=== PATIENT | male | born 1940 | race Hispanic/Latino ===

== ENCOUNTER 2017-02-03 09:07 | Inpatient (IN) | payer MEDICARE, OTHER ==
[~2017-02-03] VITALS: Ht 182.9 cm; Wt 90.7 kg
[2017-02-03 09:06] VITALS: BP 162/102
[~2017-02-03 09:07] MED LIST: ARTIFICIAL TEAR15 ML BOTH EYES; ASPIRIN EC81 MG ORAL; BRIMONIDINE TART5 ML BOTH EYES; DILANTIN-1125 MG/5 M PO; DILANTIN100 MG ORAL; KEPPRA LIQ100 MG/1 M ORAL; LEVETIRACE100 MG/1 M GT; LEVETIRACETAM250 MG PO; LISINOPRIL20 MG ORAL; LOPRESSOR1 MG/ML IV; METOPROLOL TART25 MG ORAL; MULTI-DAY VITA1 EAC1 ORAL; POTASSIUM CHLO20 ME2 ORAL; PROSCAR5 MG ORAL; TAMSULOSIN HCL0.4 MG ORAL; TYLENOL650 MG/20. ORAL; VITAMIN D250000 UNI1 ORAL; [UNRECOGNIZED DRUG - OTHER]
--- NOTE | 2017-02-03 09:59 | Emergency Room Report ---
History of Present Illness General Chief Complaint: Altered Level of Consciousness Source: Medical Record Present Illness HPI 68-year-old male presents to ED for evaluation. Per EMS patient is more altered and usual today. Patient became altered after eating breakfast as witnessed by nursing staff. Patient does have history of seizures and is poorly compliant with his medication. However there is no witnessed seizure. Patient showing no signs of distress upon arrival appear normal courted fevers or chills. No chest pain or shortness of breath. No other aggravating relieving factors. Denies any other associated symptoms Allergies: Coded Allergies: Codfish (Unverified Allergy, Unknown, 08/09/15) SOYBEAN (Unverified Allergy, Unknown, 08/09/15) Uncoded Allergies: Cow's Milk (Allergy, Intermediate, 08/09/15) COD FISH (Allergy, Unknown, 02/03/17) COW'S MILK (Allergy, Unknown, 02/03/17) IGG4 (Allergy, Unknown, 08/09/15) Patient History Past Medical History: HTN, COPD Past Surgical History: none Pertinent Family History: none Social History: Denies: alcohol use, drug use, smoking Immunizations: UTD Reviewed Nursing Documentation: PMH: Agreed, PSxH: Agreed Nursing Documentation-PMH Past Medical History: No History, Except For Hx Cardiac Problems: Yes Hx Hypertension: Yes Hx COPD: Yes Hx Cancer: No Hx Gastrointestinal Problems: Yes Hx Neurological Problems: Yes - toxic encephalopathy Hx Seizures: Yes Hx Epilepsy: Yes Review of Systems All Other Systems: limited Physical Exam Vital Signs Date Time Temp Pulse Resp B/P Pulse Ox O2 Delivery O2 Flow Rate FiO2 02/03/17 08:55 79 12 162/91 97 Room Air 02/03/17 09:06 98.0 Sp02 EP Interpretation: reviewed, normal General Appearance: non-toxic, lethargic Head: normocephalic, atraumatic Eyes: bilateral eye PERRL, bilateral eye normal inspection ENT: hearing grossly normal, normal pharynx, no angioedema, normal voice Neck: full range of motion, supple/symm/no masses Respiratory: chest non-tender, lungs clear, normal breath sounds, speaking full sentences Cardiovascular #1: regular rate, rhythm, no edema Cardiovascular #2: 2+ carotid (R), 2+ carotid (L), 2+ radial (R), 2+ radial (L) , 2+ dorsalis pedis (R), 2+ dorsalis pedis (L) Gastrointestinal: normal bowel sounds, non tender, soft, non-distended, no guarding, no rebound Rectal: deferred Genitourinary: normal inspection, no CVA tenderness Musculoskeletal: back normal, gait/station normal, normal range of motion, non- tender, calf tenderness Neurologic: other - lethargic Psychiatric: other - lethargic Reflexes: 3+ bicep (R), 3+ bicep (L), 3+ tricep (R), 3+ tricep (L), 3+ knee (R) , 3+ knee (L) Skin: normal color, no rash, warm/dry, well hydrated Lymphatic: no adenopathy Medical Decision Making Diagnostic Impression: Primary Impression: Encephalopathy acute Additional Impressions: Subtherapeutic serum dilantin level UTI (urinary tract infection) Qualified Codes: N39.0 - Urinary tract infection, site not specified Seizure disorder ER Course Hospital Course 76-year-old M presents to ED with AMS. Differential diagnosis includes- breakthrough seizure, alcohol abuse, sepsis, dehydration Clinical course Patient placed on stretcher. Initial history and physical I ordered labs, IV fluids, EKG, CXR Labs-electrolytes okay, no leukocytosis noted, hemoglobin/hematocrit stable. dilantin level low, UA + bacteria EKG - NSR, no acute changes interpreted by me CXR - elevated R hemidiaphragm Given loading dose of Dilantin. Given antibiotics. Case discussed with Dr. Maldonado and he agreed to accept the patient to his service for further care and support. i. I feel this is a highly complex case requiring extensive working including EKG/Rhythm strip, Xray/CT/US, Blood/urine lab work, repeat exams while in ED, and administration of strong opiates/narcotics for pain control, admission to hospital or close patient follow up. Diagnosis - encephaloatphy, subtherpauetic dilantin level, UTI admitted to telemetry in serious condition Labs Test 02/03/17 09:29 White Blood Count 6.4 K/UL (4.8-10.8) Red Blood Count 4.52 M/UL (4.70-6.10) Hemoglobin 14.5 G/DL (14.2-18.0) Hematocrit 43.1 % (42.0-52.0) Mean Corpuscular Volume 95 FL (80-99) Mean Corpuscular Hemoglobin 32.2 PG (27.0-31.0) Mean Corpuscular Hemoglobin Concent 33.7 G/DL (32.0-36.0) Red Cell Distribution Width 12.3 % (11.6-14.8) Platelet Count 93 K/UL (150-450) Mean Platelet Volume 9.2 FL (6.5-10.1) Neutrophils (%) (Auto) % (45.0-75.0) Lymphocytes (%) (Auto) % (20.0-45.0) Monocytes (%) (Auto) % (1.0-10.0) Eosinophils (%) (Auto) % (0.0-3.0) Basophils (%) (Auto) % (0.0-2.0) Differential Total Cells Counted 100 Neutrophils % (Manual) 73 % (45-75) Lymphocytes % (Manual) 21 % (20-45) Monocytes % (Manual) 4 % (1-10) Eosinophils % (Manual) 2 % (0-3) Basophils % (Manual) 0 % (0-2) Band Neutrophils 0 % (0-8) Platelet Estimate Decreased Platelet Morphology Normal Red Blood Cell Morphology Normal Urine Color Yellow Urine Appearance Cloudy Urine pH 6 (4.5-8.0) Urine Specific [place] 1.020 (1.005-1.035) Urine Protein 2+ (NEGATIVE) Urine Glucose (UA) Negative (NEGATIVE) Urine Ketones Negative (NEGATIVE) Urine Occult Blood 2+ (NEGATIVE) Urine Nitrite Negative (NEGATIVE) Urine Bilirubin Negative (NEGATIVE) Urine Urobilinogen Normal MG/DL (0.0-1.0) Urine Leukocyte Esterase 3+ (NEGATIVE) Urine RBC 5-10 /HPF (0 - 0) Urine WBC 60-80 /HPF (0 - 0) Urine Squamous Epithelial Cells Occasional /LPF Urine Bacteria Few /HPF (NONE) Sodium Level 143 mEQ/L (135-145) Potassium Level 3.7 mEQ/L (3.4-4.9) Chloride Level 104 mEQ/L (98-107) Carbon Dioxide Level 32 mEQ/L (20-30) Anion Gap 7 (5-15) Blood Urea Nitrogen 22 mg/dL (7-23) Creatinine 0.8 mg/dL (0.7-1.2) Estimat Glomerular Filtration Rate mL/min (>60) Glucose Level 130 mg/dL (74-106) Lactic Acid Level 1.70 mmol/L (0.66-2.22) Calcium Level 9.0 mg/dL (8.6-10.2) Total Bilirubin 0.9 mg/dL (0.0-1.2) Aspartate Amino Transf (AST/SGOT) 11 U/L (5-40) Alanine Aminotransferase (ALT/SGPT) 5 U/L (3-41) Alkaline Phosphatase 83 U/L (40-129) Total Creatine Kinase 26 U/L (38-174) Creatine Kinase MB 1.9 ng/mL (< 6.7) Creatine Kinase MB Relative Index 7.3 Troponin I < 0.30 ng/mL (<=0.30) Pro-B-Type Natriuretic Peptide 241 pg/mL (0-450) Total Protein 6.7 g/dL (6.6-8.7) Albumin 3.8 g/dL (3.5-5.2) Globulin 2.9 g/dL Albumin/Globulin Ratio 1.3 (1.0-2.7) Phenytoin (Dilantin) Level < 0.8 ug/mL (10-20) EKG Diagnostic Results Rate: normal Rhythm: other - afib ST Segments: no acute changes ASA given to the pt in ED: No Rhythm Strip Diag. Results EP Interpretation: yes Rhythm: no PVC's, no ectopy Chest X-Ray Diagnostic Results Chest X-Ray Diagnostic Results : Chest X-Ray Ordered: Yes # of Views/Limited/Complete: 1 View Indication: Other - ams EP Interpretation: Yes Interpretation: no consolidation, no pneumothorax, other - elevated R hemodiaphragm Impression: Other - elevated R hemidiaphragm Interpreting ER Provider: Electronically signed by Jimenez Haddad MD Last Vital Signs Date Time Temp Pulse Resp B/P Pulse Ox O2 Delivery O2 Flow Rate FiO2 02/03/17 09:06 98.0 71 12 162/102 97 Room Air Status: improved Disposition: ADMITTED INPATIENT Condition: Serious Referrals: BINU MALDONADO (PCP) JIMENEZ HADDAD M.D. Feb 03, 2017 09:59
[2017-02-03 10:02] LABS: MEAN CORPUSCULAR HEMOGLOBIN 32.2 PG (27.0-31.0); MEAN CORPUSCULAR HGB CONC 33.7 G/DL (32.0-36.0); MEAN CORPUSCULAR VOLUME 95 FL (80-99); MEAN PLATELET VOLUME 9.2 FL (6.5-10.1); PLATELET COUNT 93 K/UL (150-450); RED BLOOD COUNT 4.52 M/UL (4.70-6.10); RED CELL DISTRIBUTION WIDTH 12.3 % (11.6-14.8); WHITE BLOOD COUNT 6.4 K/UL (4.8-10.8)
[2017-02-03 10:05] LABS: APPEARANCE,URINE CLOUDY; KETONES,URINE NEGATIVE (NEGATIVE); LEUKOCYTE ESTERASE ,URINE 3+ (NEGATIVE); NITRITE,URINE NEGATIVE (NEGATIVE); PH,URINE 6 (4.5-8.0); PROTEIN,URINE 2+ (NEGATIVE); UROBILINOGEN,URINE NORMAL MG/DL (0.0-1.0)
[2017-02-03 10:13] LABS: BACTERIA,URINE FEW /HPF; SQUAMOUS EPITHELIAL CELL,UR OCCASIONAL /LPF (NONE/OCC); WBC,URINE 60-80 /HPF (0 - 0)
[2017-02-03 10:15] LABS: TROPONIN I < 0.30 ng/mL (<=0.30)
[2017-02-03 10:21] LABS: ALANINE AMINOTRANSFERASE 5 U/L (3-41); ALBUMIN/GLOBULIN RATIO 1.3 (1.0-2.7); ANION GAP 7 (5-15); ASPARTATE AMINO TRANSFERASE 11 U/L (5-40); CARBON DIOXIDE 32 mEQ/L (20-30); CHLORIDE 104 mEQ/L (98-107); CREATININE 0.8 mg/dL (0.7-1.2); HEMOLYSIS 14; POTASSIUM 3.7 mEQ/L (3.4-4.9); SODIUM 143 mEQ/L (135-145); TOTAL PROTEIN 6.7 g/dL (6.6-8.7)
[2017-02-03 10:29] LABS: EOSINOPHILS % (MANUAL) 2 % (0-3); LYMPHOCYTES % (MANUAL) 21 % (20-45); NEUTROPHILS % (MANUAL) 73 % (45-75); TOTAL CELLS COUNTED 100
[2017-02-03 10:30] LABS: BAND NEUTROPHILS % (MANUAL) 0 % (0-8); BASOPHILS % (MANUAL) 0 % (0-2); PLATELET ESTIMATE DECREASED; PLATELET MORPHOLOGY NORMAL
[2017-02-03 10:31] LABS: CKMB 1.9 ng/mL (< 6.7)
[2017-02-03] MEDS ORDERED: cefTRIAXone 1 GM in NS 55 ML IVPB ONE (11:00)
[2017-02-03] MEDS ORDERED: Phenytoin 1,000 MG in NS 275 ML IV ONE (11:00)
[2017-02-03 11:05] VITALS: BP 166/101
[2017-02-03] MEDS ORDERED: Phenytoin 250mg/5ml vial ONE (11:12)
[2017-02-03] MEDS ORDERED: Vitamin D 50,000 units cap ORAL SCH ×2 (11:30→21:00)
[2017-02-03] MEDS ORDERED: Acetaminophen 650mg/20.3ml ORAL PRN (11:30)
--- NOTE | 2017-02-03 11:39 | Diagnostic Imaging Report ---
Indication: Shortness of breath Technique: One view of the chest Comparison: 08/09/2015 Findings: Again demonstrated is marked elevation of the right hemidiaphragm. The hepatic flexure of the colon is mildly distended by gas. There are compressive atelectatic changes at the right lung base. No definite acute infiltrates, effusions, or congestion. There are cholecystectomy clips. No significant interim change. Patient's chin obscures the upper mediastinum Impression: No definite acute process Elevated right hemidiaphragm, also previously demonstrated, resulting in right basilar atelectasis
[2017-02-03 14:00] VITALS: BP 152/99
[2017-02-03 16:00] VITALS: BP 141/80
[2017-02-03] MEDS: D5 1/2NS 1,000 ML IV SCH (16:09)
[2017-02-03] MEDS: Artificial Tears 1.4% Op Soln BOTH EYES SCH ×2 (16:10→18:17)
[2017-02-03] MEDS: Piperacillin/Tazobactam 3.375 GM in D5W 110 ML IVPB SCH ×2 (16:10→21:35)
[2017-02-03] MEDS: Brimonidine 0.2% Opth Sol BOTH EYES SCH (18:02)
[2017-02-03 20:04] VITALS: BP 161/76
[2017-02-03] MEDS: Tamsulosin 0.4mg cap ORAL SCH (21:35)
[2017-02-03] MEDS: Phenytoin 100mg cap ORAL SCH (21:35)
[2017-02-03] MEDS: levETIRAcetam 500mg/5ml Liquid ORAL SCH (21:35)
--- NOTE | 2017-02-03 23:00 | History and Physical Report ---
DATE OF ADMISSION: 02/03/2017 CHIEF COMPLAINT: Seizures, sepsis, urinary tract infection. HISTORY OF PRESENT ILLNESS: The patient is a 76-year-old male. He has a history of seizure disorder, was transferred from a correction facility with complaints of seizures. According to staff, they found the patient confused, altered, and likely postictal. The patient has longstanding history of seizures. He has a long history of noncompliance with seizure medications. On evaluation in emergency room, the patient had evidence of urinary tract infection with dark cloudy urine. He had numerous WBCs. The patient was given IV Keppra and is now admitted. He has been started on broad-spectrum IV antibiotics. He is somewhat lethargic and confused and not at baseline. PAST MEDICAL HISTORY: Significant for: 1. History of hypertension. 2. Hypertensive heart disease. 3. History of diastolic congestive heart failure. 4. History of sleep apnea. 5. History of seizure disorder. PAST SURGICAL HISTORY: None. CURRENT MEDICATIONS: Reconciled and reviewed. ALLERGIES: and soybean. FAMILY HISTORY: Noncontributory. SOCIAL HISTORY: The patient is a prior smoker. No alcohol. No drugs. REVIEW OF SYSTEMS: Unobtainable as the patient is confused. PHYSICAL EXAMINATION: VITAL SIGNS: Temperature 98 degrees, blood pressure 162/102, pulse 71, respirations 12. GENERAL: The patient is a chronically ill-appearing male. He is arousable but confused and does not follow commands. NECK: Supple. Oropharynx is clear. Mucous members are moist. HEART: Regular rate and rhythm. LUNGS: Clear to auscultation bilaterally. ABDOMEN: Soft, nontender, and nondistended. EXTREMITIES: Without clubbing, cyanosis, or edema. LABORATORY DATA: Labs showed a white count of 7. CMP was unremarkable. UA showed 6 to 8 WBCs. ASSESSMENT: This is a elderly male admitted with seizures, sepsis, urinary tract infection, toxic metabolic encephalopathy, diastolic congestive heart failure, sleep apnea. PLAN: IV antibiotic therapy. Followup cultures. Intravenous seizure medications. Continue DVT and stress ulcer prophylaxis. Torsten Pedersen M.D. DR: Sinan JOB#: [id number] CC:
[2017-02-04] VITALS: BP 153/88
[2017-02-04 03:56] VITALS: BP 151/85
[2017-02-04] MEDS: Piperacillin/Tazobactam 3.375 GM in D5W 110 ML IVPB SCH ×3 (06:11→23:00)
[2017-02-04 08:44] VITALS: BP 145/75
--- NOTE | 2017-02-04 08:54 | General Progress Note ---
Assessment/Plan Problem List: (1) Epileptic seizure, generalized ICD Codes: G40.309 - Generalized idiopathic epilepsy and epileptic syndromes, not intractable, without status epilepticus SNOMED: 09346429 (2) Breakthrough seizure ICD Codes: G40.919 - Epilepsy, unspecified, intractable, without status epilepticus SNOMED: 388862001 (3) Altered level of consciousness ICD Codes: R40.4 - Transient alteration of awareness SNOMED: 4819453 (4) UTI (urinary tract infection) ICD Codes: N39.0 - Urinary tract infection, site not specified SNOMED: 78906080 Qualifiers: Qualified Codes: N39.0 - Urinary tract infection, site not specified Status: stable, progressing Assessment/Plan sz rx monitor level bp rx pt/ot follow up cultures iv abx Subjective ROS Limited/Unobtainable: Yes Constitutional: Reports: malaise, weakness HEENT: Reports: no symptoms Cardiovascular: Reports: no symptoms Respiratory: Reports: cough Gastrointestinal/Abdominal: Reports: no symptoms Genitourinary: Reports: no symptoms Neurologic/Psychiatric: Reports: pre-existing deficit, seizure Endocrine: Reports: no symptoms Hematologic/Lymphatic: Reports: no symptoms Allergies: Coded Allergies: Codfish (Unverified Allergy, Unknown, 08/09/15) SOYBEAN (Unverified Allergy, Unknown, 08/09/15) Uncoded Allergies: Cow's Milk (Allergy, Intermediate, 08/09/15) COD FISH (Allergy, Unknown, 02/03/17) COW'S MILK (Allergy, Unknown, 02/03/17) IGG4 (Allergy, Unknown, 08/09/15) All Systems: reviewed and negative except above Subjective no events. no szs. compliant with meds. no fever or chills. on iv abx. Objective Last 24 Hour Vital Signs Date Time Temp Pulse Resp B/P Pulse Ox O2 Delivery O2 Flow Rate FiO2 02/04/17 08:44 97.7 62 18 145/75 97 Nasal Cannula 2.0 02/04/17 04:00 66 02/04/17 03:56 98.2 64 21 151/85 98 Nasal Cannula 2.0 02/04/17 00:00 58 02/04/17 00:00 98.1 58 20 153/88 95 Nasal Cannula 02/03/17 20:04 98.3 54 19 161/76 95 Room Air 02/03/17 20:00 60 02/03/17 16:00 61 02/03/17 16:00 97.8 56 22 141/80 100 Nasal Cannula 2.0 02/03/17 14:10 98.0 59 14 152/99 97 Nasal Cannula 2.0 02/03/17 14:00 98.0 59 14 152/99 97 Nasal Cannula 2.0 02/03/17 11:05 98.0 78 15 166/101 96 Nasal Cannula 2.0 02/03/17 09:06 98.0 71 12 162/102 97 Room Air 02/03/17 08:55 79 12 162/91 97 Room Air Intake and Output 02/03/17 02/04/17 19:00 07:00 Intake Total 1255.0 ml Output Total 100 ml 1750 ml Balance 1155.0 ml -1750 ml Intake IV Total 255.0 ml Other 1000 ml Output Urine Total 100 ml 1750 ml # Bowel Movements 2 3 Laboratory Tests 02/03/17 09:29: White Blood Count 6.4, Red Blood Count 4.52L, Hemoglobin 14.5, Hematocrit 43.1, Mean Corpuscular Volume 95, Mean Corpuscular Hemoglobin 32.2H, Mean Corpuscular Hemoglobin Concent 33.7, Red Cell Distribution Width 12.3, Platelet Count 93L, Mean Platelet Volume 9.2, Neutrophils (%) (Auto) , Lymphocytes (%) (Auto) , Monocytes (%) (Auto) , Eosinophils (%) (Auto) , Basophils (%) (Auto) , Differential Total Cells Counted 100, Neutrophils % (Manual) 73, Lymphocytes % ( Manual) 21, Monocytes % (Manual) 4, Eosinophils % (Manual) 2, Basophils % ( Manual) 0, Band Neutrophils 0, Platelet Estimate DecreasedL, Platelet Morphology Normal, Red Blood Cell Morphology Normal, Urine Color Yellow, Urine Appearance Cloudy, Urine pH 6, Urine Specific [place] 1.020, Urine Protein 2+H, Urine Glucose (UA) Negative, Urine Ketones Negative, Urine Occult Blood 2+H, Urine Nitrite Negative, Urine Bilirubin Negative, Urine Urobilinogen Normal, Urine Leukocyte Esterase 3+H, Urine RBC 5-10H, Urine WBC 60-80H, Urine Squamous Epithelial Cells Occasional, Urine Bacteria Few, Sodium Level 143, Potassium Level 3.7, Chloride Level 104, Carbon Dioxide Level 32H, Anion Gap 7, Blood Urea Nitrogen 22, Creatinine 0.8, Estimat Glomerular Filtration Rate , Glucose Level 130H, Lactic Acid Level 1.70, Calcium Level 9.0, Total Bilirubin 0.9, Aspartate Amino Transf (AST/SGOT) 11, Alanine Aminotransferase (ALT/SGPT) 5, Alkaline Phosphatase 83, Total Creatine Kinase 26L, Creatine Kinase MB 1.9, Creatine Kinase MB Relative Index 7.3, Troponin I < 0.30, Pro-B-Type Natriuretic Peptide 241, Total Protein 6.7, Albumin 3.8, Globulin 2.9, Albumin/ Globulin Ratio 1.3, Phenytoin (Dilantin) Level < 0.8L Height (Feet): 6 Height (Inches): 0.00 Weight (Pounds): 200 General Appearance: WD/WN, alert Neck: supple Cardiovascular: normal rate, regular rhythm Respiratory/Chest: chest wall non-tender, lungs clear, normal breath sounds, no respiratory distress Abdomen: normal bowel sounds, non tender, soft, no organomegaly Edema: no edema noted Arm (L), no edema noted Arm (R), no edema noted Leg (L), no edema noted Leg (R), no edema noted Pedal (L), no edema noted Pedal (R), no edema noted 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
[2017-02-04] MEDS ORDERED: D5 1/2NS 1,000 ML IV SCH (09:00)
[2017-02-04] MEDS ORDERED: Metoprolol 25mg tab ORAL SCH (09:00)
[2017-02-04] MEDS: levETIRAcetam 500mg/5ml Liquid ORAL SCH ×2 (09:19→20:40)
[2017-02-04] MEDS: D5 1/2NS 1,000 ML IV SCH ×2 (09:19→20:55)
[2017-02-04] MEDS: Lisinopril 20mg tab ORAL SCH (09:20)
[2017-02-04] MEDS: Aspirin EC 81mg tab ORAL SCH (09:20)
[2017-02-04] MEDS: Artificial Tears 1.4% Op Soln BOTH EYES SCH ×3 (09:21→17:34)
[2017-02-04] MEDS: Brimonidine 0.2% Opth Sol BOTH EYES SCH ×3 (09:21→17:34)
[2017-02-04] MEDS: Phenytoin 100mg cap ORAL SCH ×2 (10:52→20:40)
[2017-02-04 12:00] VITALS: BP_SYST 112; BP_SYST 115; BP_DIAS 67; BP_DIAS 93
[2017-02-04 16:00] VITALS: BP 108/60
[2017-02-04 20:32] VITALS: BP 127/72
[2017-02-04] MEDS: Tamsulosin 0.4mg cap ORAL SCH (20:40)
[2017-02-04] MEDS ORDERED: D5 1/2NS 1000ml IV ONE (21:03)
[2017-02-04] MEDS ORDERED: Tubing IV Secondary IV ONE (21:03)
[2017-02-05] VITALS (7 sets, daily range): BP systolic 108–157; BP diastolic 50–86
[2017-02-05] MEDS: Piperacillin/Tazobactam 3.375 GM in D5W 110 ML IVPB SCH (05:52)
[2017-02-05] MEDS: D5 1/2NS 1,000 ML IV SCH (07:21)
--- NOTE | 2017-02-05 08:54 | General Progress Note ---
Assessment/Plan Problem List: (1) Epileptic seizure, generalized ICD Codes: G40.309 - Generalized idiopathic epilepsy and epileptic syndromes, not intractable, without status epilepticus SNOMED: 30738141 (2) Breakthrough seizure ICD Codes: G40.919 - Epilepsy, unspecified, intractable, without status epilepticus SNOMED: 505723621 (3) Altered level of consciousness ICD Codes: R40.4 - Transient alteration of awareness SNOMED: 3627415 (4) UTI (urinary tract infection) ICD Codes: N39.0 - Urinary tract infection, site not specified SNOMED: 03571475 Qualifiers: Qualified Codes: N39.0 - Urinary tract infection, site not specified Status: stable, progressing Assessment/Plan sz rx monitor level bp rx pt/ot follow up cultures iv abx adjusted dc ivf Subjective ROS Limited/Unobtainable: No Constitutional: Reports: malaise, weakness HEENT: Reports: no symptoms Cardiovascular: Reports: no symptoms Respiratory: Reports: no symptoms Gastrointestinal/Abdominal: Reports: no symptoms Genitourinary: Reports: no symptoms Neurologic/Psychiatric: Reports: pre-existing deficit, seizure Endocrine: Reports: no symptoms Hematologic/Lymphatic: Reports: no symptoms Allergies: Coded Allergies: Codfish (Unverified Allergy, Unknown, 08/09/15) SOYBEAN (Unverified Allergy, Unknown, 08/09/15) Uncoded Allergies: Cow's Milk (Allergy, Intermediate, 08/09/15) COD FISH (Allergy, Unknown, 02/03/17) COW'S MILK (Allergy, Unknown, 02/03/17) IGG4 (Allergy, Unknown, 08/09/15) All Systems: reviewed and negative except above Subjective no events. no szs. compliant with meds. + fever or chills. on iv abx. Objective Last 24 Hour Vital Signs Date Time Temp Pulse Resp B/P Pulse Ox O2 Delivery O2 Flow Rate FiO2 02/05/17 08:00 101.5 110 18 108/50 99 Nasal Cannula 3.0 02/05/17 04:00 97.5 64 20 145/70 95 Room Air 02/05/17 04:00 64 02/05/17 00:00 70 02/05/17 00:00 97.9 64 20 130/80 95 Room Air 02/04/17 20:32 97.4 59 20 127/72 97 Room Air 02/04/17 20:00 56 02/04/17 16:00 59 02/04/17 16:00 97.0 57 20 108/60 98 Nasal Cannula 2.0 02/04/17 12:00 63 02/04/17 12:00 97.6 61 18 112/67 96 Nasal Cannula 2.0 02/04/17 09:20 145/75 Intake and Output 02/04/17 02/05/17 19:00 07:00 Intake Total 1360.0 ml Output Total 550 ml 1875 ml Balance 810.0 ml -1875 ml Intake Oral 240 ml IV Total 1120.0 ml Output Urine Total 550 ml 1875 ml # Bowel Movements 1 Laboratory Tests 02/04/17 09:54: Phenytoin (Dilantin) Level 3.2L Height (Feet): 6 Height (Inches): 0.00 Weight (Pounds): 200 Objective General Appearance: WD/WN, alert Neck: supple Cardiovascular: normal rate, regular rhythm Respiratory/Chest: chest wall non-tender, lungs clear, normal breath sounds, no respiratory distress Abdomen: normal bowel sounds, non tender, soft, no organomegaly Edema: no edema noted Arm (L), no edema noted Arm (R), no edema noted Leg (L), no edema noted Leg (R), no edema noted Pedal (L), no edema noted Pedal (R), no edema noted 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
[2017-02-05] MEDS: Aspirin EC 81mg tab ORAL SCH (09:36)
[2017-02-05] MEDS: Lisinopril 20mg tab ORAL SCH (09:36)
[2017-02-05] MEDS: Artificial Tears 1.4% Op Soln BOTH EYES SCH ×3 (09:38→18:56)
[2017-02-05] MEDS: Brimonidine 0.2% Opth Sol BOTH EYES SCH ×3 (09:38→18:56)
[2017-02-05] MEDS: levETIRAcetam 500mg/5ml Liquid ORAL SCH ×2 (09:38→21:17)
[2017-02-05] MEDS: Phenytoin 100mg cap ORAL SCH ×2 (09:39→21:17)
[2017-02-05 10:08] LABS: MEAN CORPUSCULAR HEMOGLOBIN 32.2 PG (27.0-31.0); MEAN CORPUSCULAR HGB CONC 33.9 G/DL (32.0-36.0); MEAN CORPUSCULAR VOLUME 95 FL (80-99); MEAN PLATELET VOLUME 9.4 FL (6.5-10.1); PLATELET COUNT 89 K/UL (150-450); RED BLOOD COUNT 4.33 M/UL (4.70-6.10); RED CELL DISTRIBUTION WIDTH 12.4 % (11.6-14.8)
[2017-02-05 10:24] LABS: ALANINE AMINOTRANSFERASE 5 U/L (3-41); ALBUMIN/GLOBULIN RATIO 1.3 (1.0-2.7); ASPARTATE AMINO TRANSFERASE 11 U/L (5-40); CALCIUM 8.5 mg/dL (8.6-10.2); CARBON DIOXIDE 31 mEQ/L (20-30); CREATININE 0.9 mg/dL (0.7-1.2); HEMOLYSIS 24; TOTAL PROTEIN 6.1 g/dL (6.6-8.7)
[2017-02-05] MEDS: Vancomycin 1gm/D5W 275ml IVPB SCH ×4 (10:24→21:18)
[2017-02-05 10:32] LABS: BAND NEUTROPHILS % (MANUAL) 0 % (0-8); BASOPHILS % (MANUAL) 0 % (0-2); EOSINOPHILS % (MANUAL) 1 % (0-3); LYMPHOCYTES % (MANUAL) 28 % (20-45); NEUTROPHILS % (MANUAL) 64 % (45-75); PLATELET ESTIMATE DECREASED; PLATELET MORPHOLOGY NORMAL; TOTAL CELLS COUNTED 100
[2017-02-05 10:38] LABS: ANION GAP 9 (5-15); CHLORIDE 103 mEQ/L (98-107); POTASSIUM 3.6 mEQ/L (3.4-4.9); SODIUM 143 mEQ/L (135-145)
--- NOTE | 2017-02-05 11:45 | Consultation ---
DATE OF CONSULTATION: 02/05/2017 INFECTIOUS DISEASE CONSULT This consult is for coverage of Dr. Patiño. PRIMARY ATTENDING PHYSICIAN: Torsten Pedersen M.D. REASON FOR CONSULT: UTI. HISTORY OF PRESENT ILLNESS: The patient is a 76-year-old male, admitted on 02/03/2017, because of altered mental status. The patient is residing in the nursing facility. He has a history of seizure disorder and noncompliance with medication. Before admission, he was on Dilantin. The patient was found confused, altered mental status, and it was found that the Dilantin level was pretty low. The patient also had pyuria and bacteriuria. PAST MEDICAL HISTORY: Significant for seizure disorder, hypertension, COPD, diastolic CHF, sleep apnea, and prostatic hypertrophy. MEDICATIONS: Vancomycin, aspirin, finasteride, lisinopril, multivitamin, Keppra, phenytoin, Flomax, ergocalciferol, Alphagan eye drops, artificial tears, Tylenol, and Zofran. SOCIAL HISTORY: longterm resident. History of smoking in the past. No history of alcohol or drug abuse. REVIEW OF SYSTEMS: Somehow is Limited. He has fever of 101.5 today. He has no chills. He complains of neck pain. He has no problem passing urine. PHYSICAL EXAMINATION: GENERAL APPEARANCE: No acute distress. He seems to be thin. Awake, alert, and verbal. VITAL SIGNS: Temperature 101.5 degrees this morning, pulse 110, and blood pressure 108/50. HEAD AND NECK: No teeth. [place] conjunctivae. HEART: Tachycardic. Regular. LUNGS: Clear. ABDOMEN: Soft and nontender. EXTREMITIES: No edema. LABORATORY AND DIAGNOSTIC DATA: Chest x-ray, no acute process. WBC 6.4, hemoglobin 14.5, hematocrit 43.1, and platelets 93,000. Sodium 142, potassium 3.7, chloride 104, bicarbonate 82, BUN 22, and creatinine 0.8. Glucose 130. Urine culture grew Staph species. Blood culture x2 are negative. MRSA so far is negative. IMPRESSION: Pyuria and bacteriuria, likely urinary tract infection. The patient has history of benign prostatic hypertrophy. The patient has seizure disorder, altered mental status, chronic obstructive pulmonary disease, diastolic congestive heart failure, and hypertension. RECOMMENDATIONS: We will continue with vancomycin. We will follow up the cultures. At the end of my exam, I thank Dr. Pedersen for involving me in the care of this patient. Pravin Davidson M.D. DR: MARLON JOB#: [id number] CC:
[2017-02-05] MEDS: Tamsulosin 0.4mg cap ORAL SCH (21:17)
[2017-02-06 04:00] VITALS: BP 153/90
[2017-02-06 08:00] VITALS: BP 155/93
--- NOTE | 2017-02-06 08:55 | General Progress Note ---
Assessment/Plan Problem List: (1) Epileptic seizure, generalized ICD Codes: G40.309 - Generalized idiopathic epilepsy and epileptic syndromes, not intractable, without status epilepticus SNOMED: 59562956 (2) Breakthrough seizure ICD Codes: G40.919 - Epilepsy, unspecified, intractable, without status epilepticus SNOMED: 039907005 (3) Altered level of consciousness ICD Codes: R40.4 - Transient alteration of awareness SNOMED: 3172048 (4) UTI (urinary tract infection) ICD Codes: N39.0 - Urinary tract infection, site not specified SNOMED: 37901053 Qualifiers: Qualified Codes: N39.0 - Urinary tract infection, site not specified Status: stable, progressing Assessment/Plan sz rx adjusted- dilantin increased monitor level bp rx pt/ot follow up cultures iv abx adjusted dc ivf ok to med surg bed close to nurses station Subjective ROS Limited/Unobtainable: No Constitutional: Reports: malaise, weakness HEENT: Reports: no symptoms Cardiovascular: Reports: no symptoms Respiratory: Reports: no symptoms Gastrointestinal/Abdominal: Reports: no symptoms Genitourinary: Reports: no symptoms Neurologic/Psychiatric: Reports: pre-existing deficit, seizure Endocrine: Reports: no symptoms Hematologic/Lymphatic: Reports: no symptoms Allergies: Coded Allergies: Codfish (Unverified Allergy, Unknown, 08/09/15) SOYBEAN (Unverified Allergy, Unknown, 08/09/15) Uncoded Allergies: Cow's Milk (Allergy, Intermediate, 08/09/15) COD FISH (Allergy, Unknown, 02/03/17) COW'S MILK (Allergy, Unknown, 02/03/17) IGG4 (Allergy, Unknown, 08/09/15) All Systems: reviewed and negative except above Subjective no events. no szs. compliant with meds. + fever or chills. on iv abx. dilantin subtherapeutic Objective Last 24 Hour Vital Signs Date Time Temp Pulse Resp B/P Pulse Ox O2 Delivery O2 Flow Rate FiO2 02/06/17 08:21 70 02/06/17 04:00 64 02/06/17 04:00 98.2 68 18 153/90 96 Room Air 02/06/17 00:00 68 02/05/17 23:46 98.1 67 18 157/86 96 Room Air 02/05/17 20:00 79 02/05/17 20:00 97.0 69 18 143/84 96 Room Air 02/05/17 16:00 65 02/05/17 16:00 97.4 65 20 138/78 95 Room Air 02/05/17 12:00 60 02/05/17 12:00 96.8 63 21 143/83 95 Room Air 02/05/17 09:36 108/50 Intake and Output 02/05/17 02/06/17 19:00 07:00 Intake Total 755.000 ml Output Total 2600 ml 1250 ml Balance -1845.000 ml -1250 ml Intake Oral 480 ml IV Total 275.000 ml Output Urine Total 2600 ml 1250 ml Laboratory Tests 02/05/17 09:40: White Blood Count 7.0, Red Blood Count 4.33L, Hemoglobin 13.9L, Hematocrit 41.2L , Mean Corpuscular Volume 95, Mean Corpuscular Hemoglobin 32.2H, Mean Corpuscular Hemoglobin Concent 33.9, Red Cell Distribution Width 12.4, Platelet Count 89L, Mean Platelet Volume 9.4, Neutrophils (%) (Auto) , Lymphocytes (%) ( Auto) , Monocytes (%) (Auto) , Eosinophils (%) (Auto) , Basophils (%) (Auto) , Differential Total Cells Counted 100, Neutrophils % (Manual) 64, Lymphocytes % ( Manual) 28, Monocytes % (Manual) 7, Eosinophils % (Manual) 1, Basophils % ( Manual) 0, Band Neutrophils 0, Platelet Estimate DecreasedL, Platelet Morphology Normal, Red Blood Cell Morphology Normal, Sodium Level 143, Potassium Level 3.6, Chloride Level 103, Carbon Dioxide Level 31H, Anion Gap 9, Blood Urea Nitrogen 14, Creatinine 0.9, Estimat Glomerular Filtration Rate , Glucose Level 104, Calcium Level 8.5L, Total Bilirubin 0.9, Aspartate Amino Transf (AST/SGOT) 11, Alanine Aminotransferase (ALT/SGPT) 5, Alkaline Phosphatase 85, Total Protein 6.1L, Albumin 3.5, Globulin 2.6, Albumin/Globulin Ratio 1.3, Phenytoin (Dilantin) Level 4.7L Height (Feet): 6 Height (Inches): 0.00 Weight (Pounds): 200 Objective General Appearance: WD/WN, alert Neck: supple Cardiovascular: normal rate, regular rhythm Respiratory/Chest: chest wall non-tender, lungs clear, normal breath sounds, no respiratory distress Abdomen: normal bowel sounds, non tender, soft, no organomegaly Edema: no edema noted Arm (L), no edema noted Arm (R), no edema noted Leg (L), no edema noted Leg (R), no edema noted Pedal (L), no edema noted Pedal (R), no edema noted Generalized 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
[2017-02-06] MEDS: Artificial Tears 1.4% Op Soln BOTH EYES SCH ×3 (09:04→17:23)
[2017-02-06] MEDS: levETIRAcetam 500mg/5ml Liquid ORAL SCH ×2 (09:07→21:00)
[2017-02-06] MEDS: Brimonidine 0.2% Opth Sol BOTH EYES SCH ×3 (09:07→17:23)
[2017-02-06] MEDS: Aspirin EC 81mg tab ORAL SCH (09:07)
[2017-02-06] MEDS: Vancomycin 1gm/D5W 275ml IVPB SCH ×6 (09:08→23:17)
[2017-02-06] MEDS: Lisinopril 20mg tab ORAL SCH (09:09)
[2017-02-06] MEDS ORDERED: Phenytoin 100mg cap ORAL SCH (09:30)
--- NOTE | 2017-02-06 10:39 | Infectious Diseases Prog Note ---
Assessment/Plan Assessment/Plan antibiotics : vancomycin iv A 1. MRSA UTI 2. thrombocytopenia 3. seizures 4. HTN 5. BPH 6. left arm cellulitis P 1. continue vancomycin 5 more days 2. will follow up cultures Subjective Constitutional: Denies: chills, fever Respiratory: Denies: dry cough, shortness of breath Gastrointestinal/Abdominal: Denies: diarrhea, nausea, vomiting Musculoskeletal: Reports: pain Allergies: Coded Allergies: Codfish (Unverified Allergy, Unknown, 08/09/15) SOYBEAN (Unverified Allergy, Unknown, 08/09/15) Uncoded Allergies: Cow's Milk (Allergy, Intermediate, 08/09/15) COD FISH (Allergy, Unknown, 02/03/17) COW'S MILK (Allergy, Unknown, 02/03/17) IGG4 (Allergy, Unknown, 08/09/15) Objective Vital Signs Last 24 Hour Vital Signs Date Time Temp Pulse Resp B/P Pulse Ox O2 Delivery O2 Flow Rate FiO2 02/06/17 09:09 153/91 02/06/17 08:21 70 02/06/17 08:00 97.2 70 18 155/93 92 Room Air 02/06/17 04:00 64 02/06/17 04:00 98.2 68 18 153/90 96 Room Air 02/06/17 00:00 68 02/05/17 23:46 98.1 67 18 157/86 96 Room Air 02/05/17 20:00 79 02/05/17 20:00 97.0 69 18 143/84 96 Room Air 02/05/17 16:00 65 02/05/17 16:00 97.4 65 20 138/78 95 Room Air 02/05/17 12:00 60 02/05/17 12:00 96.8 63 21 143/83 95 Room Air Height (Feet): 6 Height (Inches): 0.00 Weight (Pounds): 200 Respiratory/Chest: lungs clear Cardiovascular: normal rate, regular rhythm, no gallop/murmur Abdomen: soft, non tender Extremities: no edema - left arm erythema, edema Microbiology Date/Time Source Procedure Growth Status 02/03/17 10:47 Nasal Nares MRSA Culture - Final NO METHICILLIN RESISTANT STAPH AUREUS... Complete 02/04/17 18:19 Stool Clostridium difficile Toxin Assay - Final Complete 8/4/17 10:47 Rectum VRE Culture - Final NO VANCOMYCIN RESISTANT ENTEROCOCCUS ... Complete IVETTE DOUGLASS Feb 06, 2017 10:39
[2017-02-06 12:00] VITALS: BP 127/73
--- NOTE | 2017-02-06 15:38 | Diagnostic Imaging Report ---
Indication: Neck Pain Findings: 3 views of the cervical spine were obtained. Study is suboptimal and limited. There is an anterolisthesis at C3-4. There is moderate narrowing of the disc C4-5, C5-6 and C6-7. The bones are osteopenic. There is no obvious fracture. Impression: Limited evaluation showing no obvious acute injury.
[2017-02-06 16:00] VITALS: BP 153/92
[2017-02-06] MEDS ORDERED: D5 1/2NS 1000ml IV ONE (16:46)
[2017-02-06 20:11] VITALS: BP 130/90
[2017-02-06] MEDS ORDERED: Tamsulosin 0.4mg cap ORAL SCH (21:00)
[2017-02-06] MEDS: Vancomycin 1 GM in D5W 275 ML IVPB SCH (22:00)
[2017-02-06] MEDS: Phenytoin 100mg cap ORAL SCH (23:23)
[2017-02-06 23:28] VITALS: BP 176/86
[2017-02-07 03:43] VITALS: BP 170/101
--- NOTE | 2017-02-07 06:45 | Consultation ---
DATE OF CONSULTATION: 02/06/2017 CARDIOLOGY CONSULTATION REQUESTING PHYSICIAN: Torsten Pedersen M.D. REASON FOR CONSULTATION: Labile hypertension. HISTORY OF PRESENT ILLNESS: This is a 76-year-old male with a seizure disorder, who was admitted to the hospital for breakthrough seizures several days ago. He was confused, altered and due to postictal state and started on additional anti seizure medications with no recurrence. He was also noted to have a urinary tract infection and associated encephalopathy. Since admission, he has had labile blood pressure readings and I have been asked to assist for further cardiovascular care. PAST MEDICAL HISTORY: Hypertension with hypertensive heart disease, chronic diastolic congestive heart failure, sleep apnea, seizure disorder, degenerative disk disease, history of cervical laminectomy, prostatic hypertrophy, vitamin D deficiency, glaucoma, and arteriosclerotic cardiovascular disease. ALLERGIES: Milk and soy martinez. SOCIAL HISTORY: Distant smoker. Distant history of moderate alcohol use presently. Lives in a retirement facility. FAMILY HISTORY: Noncontributory. REVIEW OF SYSTEMS: Not reliably obtained from the patient. Prior records reviewed. Pertinent cardiovascular data notable for absence of flow-limiting coronary artery disease. Echocardiogram with normal ejection fraction, concentric hypertrophy, and mild degenerative valve disease. No history of blood clots in the legs. No history of irregular heartbeats. He has no history of asthma or COPD. PHYSICAL EXAMINATION: VITAL SIGNS: Blood pressure ranging from 127/73 to 176/86, heart rate 53 to 71, respiratory 17 to 20, and no fevers. HEENT: Conjunctivae are pink. Oropharynx clear. NECK: Supple. Kyphosis. LUNGS: Diminished breath sounds. CARDIAC: Regular rhythm and rate. Normal S1 and S2 with a fourth heart sound and point of maximal pulse sustained. ABDOMEN: Soft and nontender. EXTREMITIES: Good pulses. No edema. LABORATORY AND DIAGNOSTIC DATA: EKG with sinus rhythm, left ventricular hypertrophy and nonspecific ST change. Most recent labs from yesterday notable for BUN 14, creatinine 0.9, potassium 3.6, and pro-natriuretic peptide on 02/03/2017 of 241. IMPRESSION: 1. Toxic and metabolic encephalopathy. 2. Urinary tract infection. 3. Seizure disorder with breakthrough seizures and associated postictal state. 4. Hypertensive heart disease with labile hypertension. 5. Chronic diastolic congestive heart failure. Sinus bradycardia of no clinical significance. PLAN: 1. Titrate antiseizure regimen. 2. Avoid beta-blockers. 3. DVT prophylaxis. 4. Metabolic profile including thyroid panel, B12 and folate levels. 5. P.r.n. antihypertensives until metabolic and cerebrovascular parameters have been stabilized. Ciro Ames M.D. DR: DANIA JOB#: [id number] CC:
[2017-02-07 08:15] VITALS: BP 163/86
[2017-02-07] MEDS: levETIRAcetam 500mg/5ml Liquid ORAL SCH (08:29)
[2017-02-07] MEDS: Phenytoin 100mg cap ORAL SCH (08:31)
[2017-02-07] MEDS: Artificial Tears 1.4% Op Soln BOTH EYES SCH ×4 (08:48→12:43)
[2017-02-07] MEDS: Brimonidine 0.2% Opth Sol BOTH EYES SCH ×4 (08:49→12:43)
[2017-02-07] MEDS ORDERED: DILANTIN100 MG ORAL (08:57)
[2017-02-07] MEDS ORDERED: KEPPRA LIQ100 MG/1 M ORAL (08:57)
[2017-02-07] MEDS ORDERED: Lisinopril 20mg tab ORAL SCH (09:00)
[2017-02-07] MEDS ORDERED: Aspirin EC 81mg tab ORAL SCH (09:00)
[2017-02-07 09:35] LABS: MEAN CORPUSCULAR HEMOGLOBIN 31.5 PG (27.0-31.0); MEAN CORPUSCULAR HGB CONC 33.4 G/DL (32.0-36.0); MEAN CORPUSCULAR VOLUME 94 FL (80-99); MEAN PLATELET VOLUME 9.6 FL (6.5-10.1); PLATELET COUNT 96 K/UL (150-450); RED BLOOD COUNT 4.76 M/UL (4.70-6.10); RED CELL DISTRIBUTION WIDTH 12.4 % (11.6-14.8); WHITE BLOOD COUNT 7.7 K/UL (4.8-10.8)
[2017-02-07 10:17] LABS: ALANINE AMINOTRANSFERASE 5 U/L (3-41); ALBUMIN/GLOBULIN RATIO 1.1 (1.0-2.7); ANION GAP 7 (5-15); ASPARTATE AMINO TRANSFERASE 10 U/L (5-40); CALCIUM 8.7 mg/dL (8.6-10.2); CARBON DIOXIDE 30 mEQ/L (20-30); CHLORIDE 104 mEQ/L (98-107); CREATININE 0.8 mg/dL (0.7-1.2); HEMOLYSIS 12; MAGNESIUM 1.7 mg/dL (1.7-2.5); POTASSIUM 3.5 mEQ/L (3.4-4.9); SODIUM 141 mEQ/L (135-145); TOTAL PROTEIN 6.2 g/dL (6.6-8.7)
[2017-02-07 10:22] LABS: THYROID STIMULATING HORMONE 0.686 uIU/mL (0.300-4.500)
[2017-02-07] MEDS: Vancomycin 1 GM in D5W 275 ML IVPB SCH (11:00)
[2017-02-07 11:17] LABS: BASOPHILS % (MANUAL) 1 % (0-2); LYMPHOCYTES % (MANUAL) 19 % (20-45); NEUTROPHILS % (MANUAL) 74 % (45-75); TOTAL CELLS COUNTED 100
[2017-02-07 11:18] LABS: BAND NEUTROPHILS % (MANUAL) 0 % (0-8); EOSINOPHILS % (MANUAL) 0 % (0-3); PLATELET ESTIMATE DECREASED; PLATELET MORPHOLOGY NORMAL
[2017-02-07 12:00] VITALS: BP 135/100
[2017-02-07 16:00] VITALS: BP 155/88
--- NOTE | 2017-02-08 01:00 | Discharge Summary ---
DATE OF ADMISSION: 02/03/2017 DATE OF DISCHARGE: 02/07/2017 ADMISSION DIAGNOSES: 1. Seizures. 2. Urinary tract infection. DISCHARGE DIAGNOSES: 1. Seizures. 2. Urinary tract infection. HOSPITAL COURSE: The patient is a pleasant male with history of seizures disorder, hypertension, diastolic congestive heart failure, sleep apnea, history of noncompliance presented with complaints of seizures and diagnosed with MRSA urinary tract infection and received antibiotic therapy. Neurologic consultation was obtained. The patient's antiseizure medication was adjusted. On discharge, he was doing well. The patient will be [facility]. He will continue on seizure treatment. Compliance has been stressed. Plan of care was discussed with the patient's sister. DISCHARGE MEDICATIONS: Please see discharge medication list for discharge medications. DIET: Cardiac diet. ACTIVITY: Ad-omid. FOLLOWUP: The patient will follow up in one to two days at jail facility. Torsten Pedersen M.D. DR: Keyona JOB#: [id number] CC:
--- NOTE | 2017-02-09 04:15 | Progress Note ---
DATE: 02/07/2017 CARDIOLOGY PROGRESS NOTE Late entry report for 02/07/2017 SUBJECTIVE: The patient is more alert and closer to his baseline level of mentation. No seizures have been noted. OBJECTIVE: VITAL SIGNS: Blood pressure remained labile up to 170/101 earlier this morning. Now 135/100, heart rate 57 to 64, respiratory rate 20, and afebrile. NECK: Supple. LUNGS: With diminished breath sounds. No wheezes or rales. CARDIAC: Regular rhythm and rate. Normal S1 and S2 with a fourth heart sound. ABDOMEN: Soft. EXTREMITIES: Trace edema. IMPRESSION: 1. Breakthrough seizures, now on adjusted therapy. 2. Urinary tract infection with sepsis, recovering. 3. Degenerative disk disease. 4. Hypertensive urgency, improving. 5. Sinus bradycardia, chronic and of no clinical significance. PLAN: Continue current antiseizure regimen. Complete antibiotic course. Advancing antihypertensive regimen with caution. Avoid beta-blockers and other agents such as clonidine with negative chronotropic potential. Avoid tight blood pressure control due to orthostatic risk and fall. Ciro Ames M.D. DR: Kiya JOB#: [id number] CC:
[2017-02-10] MEDS ORDERED: Vitamin D 50,000 units cap ORAL SCH (21:00)
== END 2017-02-07 19:07 | DRG 100 ==
LOC: EDBD 09:07 → EDBEDREQ 09:17 → EMR 09:34 → 2E 09:37 → EDBEDREQ 09:45 → 2E 14:49 → 4E 02-06 20:21
DX: G40.309 Generalized idiopathic epilepsy and epileptic syndromes, not intractable, without status epilepticus (principal); G92 Toxic encephalopathy; D69.6 Thrombocytopenia, unspecified; I11.0 Hypertensive heart disease with heart failure; I50.32 Chronic diastolic (congestive) heart failure; N39.0 Urinary tract infection, site not specified; L03.114 Cellulitis of left upper limb; B95.62 Methicillin resistant Staphylococcus aureus infection as the cause of diseases classified elsewhere; G47.30 Sleep apnea, unspecified; I10 Essential (primary) hypertension; Z91.19 Patient's noncompliance with other medical treatment and regimen; J44.9 Chronic obstructive pulmonary disease, unspecified; N40.0 Benign prostatic hyperplasia without lower urinary tract symptoms; Z87.891 Personal history of nicotine dependence; H40.9 Unspecified glaucoma; I25.10 Atherosclerotic heart disease of native coronary artery without angina pectoris
CPT/HCPCS: 36415; 71010; 72040; 80053; 80185; 80202; 81003; 82550; 82553; 82607; 82746; 83605; 83735; 83880; 84443; 84484; 85007; 85025; 87040; 87081; 87086; 87181; 87324; 93005; J1165

== ENCOUNTER 2017-05-14 18:54 | Inpatient (IN) | payer MEDICARE, OTHER ==
[~2017-05-14] VITALS: Ht 182.9 cm; Wt 88.9 kg
[2017-05-14 19:14] VITALS: BP 132/85
[2017-05-14 19:15] VITALS: BP 125/72
[2017-05-14] MEDS ORDERED: OMEPRAZOLE20 M2 ORAL (19:39)
[2017-05-14] MEDS ORDERED: KEPPRA LIQ100 MG/1 M ORAL (19:39)
[2017-05-14] MEDS ORDERED: HYDRALAZINE HCL25 M1 ORAL (19:39)
[2017-05-14 19:43] LABS: EOSINOPHILS % (AUTO) 2.5 % (0.0-3.0); LYMPHOCYTES % (AUTO) 24.6 % (20.0-45.0); MEAN CORPUSCULAR HGB CONC 32.3 G/DL (32.0-36.0); MEAN CORPUSCULAR VOLUME 99 FL (80-99); MEAN PLATELET VOLUME 6.9 FL (6.5-10.1); MONOCYTES % (AUTO) 9.8 % (1.0-10.0); NEUTROPHILS % (AUTO) 62.1 % (45.0-75.0); PLATELET COUNT 123 K/UL (150-450); RED BLOOD COUNT 4.22 M/UL (4.70-6.10); RED CELL DISTRIBUTION WIDTH 12.7 % (11.6-14.8); WHITE BLOOD COUNT 6.9 K/UL (4.8-10.8)
[2017-05-14 20:02] LABS: PROTHROMBIN TIME 10.7 SEC (9.30-11.50)
[2017-05-14 20:04] LABS: ANION GAP 5 mmol/L (5-15); CALCIUM 8.7 MG/DL (8.5-10.1); CARBON DIOXIDE 32 MMOL/L (21-32); CHLORIDE 107 MMOL/L (98-107); CREATININE 0.8 MG/DL (0.55-1.30); SODIUM 144 MMOL/L (136-145)
[2017-05-14 20:07] LABS: AMMONIA 36 umol/L (11.2-31.7)
[2017-05-14 20:15] LABS: ALANINE AMINOTRANSFERASE 15 U/L (12-78); ALBUMIN/GLOBULIN RATIO 0.9 (1.0-2.7); ASPARTATE AMINO TRANSFERASE 14 U/L (15-37); LIPASE 206 U/L (73-393)
[2017-05-14 20:28] LABS: KETONES,URINE NEGATIVE (NEGATIVE); LEUKOCYTE ESTERASE ,URINE 2+ (NEGATIVE); NITRITE,URINE NEGATIVE (NEGATIVE); PH,URINE 5 (4.5-8.0); PROTEIN,URINE 1+ (NEGATIVE); UROBILINOGEN,URINE NORMAL MG/DL (0.0-1.0)
[2017-05-14 20:36] LABS: APPEARANCE,URINE SLIGHTLY CLOUDY
--- NOTE | 2017-05-14 20:38 | Emergency Room Report ---
History of Present Illness General Chief Complaint: Altered Level of Consciousness Source: Patient, EMS Present Illness HPI The patient presents with altered mentation. He was unresponsive at the custodial facility. With sterile itching the patient workup and was able to converse with paramedics. His Accu-Chek was 141 in the field. According to staff he has had this problem in the past with urinary tract infection. Review of his medical records reveals that he's had hepatic encephalopathy in the past. The patient is alert here and denies any pain. Also denies any headache. Denies vomiting, diarrhea, dysuria, chest pain, shortness of breath, cough, skin rashes. Patient on both Keppra and Dilantin for seizures. Was admitted January with AMS felt related to seizure. D/C 02/07 with these dx: Dilantin was subtherapeutic at that time. Alleged poor compliance with med regimen. 1. Breakthrough seizures, now on adjusted therapy. 2. Urinary tract infection with sepsis, recovering. 3. Degenerative disk disease. 4. Hypertensive urgency, improving. 5. Sinus bradycardia, chronic and of no clinical significance. Allergies: Coded Allergies: Codfish (Unverified Allergy, Unknown, 08/09/15) SOYBEAN (Unverified Allergy, Unknown, 08/09/15) Uncoded Allergies: Cow's Milk (Allergy, Intermediate, 08/09/15) COD FISH (Allergy, Unknown, 02/03/17) COW'S MILK (Allergy, Unknown, 02/03/17) IGG4 (Allergy, Unknown, 08/09/15) Patient History Past Medical History: see triage record, old chart reviewed Social History: Reports: smoking - prior, Denies: alcohol use, drug use Social History Narrative [facility] - Born in [facility] - worked 10 jobs Reviewed Nursing Documentation: PMH: Agreed, PSxH: Agreed Nursing Documentation-PMH Hx Cardiac Problems: Yes - Heart failure Hx Hypertension: Yes - Glaucoma Hx COPD: Yes Hx Cancer: No Hx Gastrointestinal Problems: Yes Hx Neurological Problems: Yes - toxic encephalopathy Hx Seizures: Yes - Encephalopathy Hx Epilepsy: Yes Review of Systems All Other Systems: negative except mentioned in HPI Physical Exam Vital Signs Date Time Temp Pulse Resp B/P (MAP) Pulse Ox O2 Delivery O2 Flow Rate FiO2 05/14/17 18:58 58 16 147/88 98 Room Air 05/14/17 19:14 97.9 Sp02 EP Interpretation: reviewed, normal General Appearance: well appearing, no apparent distress, other - somewhat slow to answer Head: normocephalic Eyes: bilateral eye normal inspection, bilateral eye PERRL ENT: moist mucus membranes Neck: supple Respiratory: lungs clear, normal breath sounds Cardiovascular #1: regular rate, rhythm Cardiovascular #2: 2+ radial (R) Gastrointestinal: normal inspection, normal bowel sounds, non tender, no mass, non-distended Musculoskeletal: back normal, gait/station normal, normal range of motion Neurologic: alert, motor strength/tone normal, DTRs symmetric, sensory intact, speech normal Psychiatric: mood/affect normal Skin: normal inspection, warm/dry Medical Decision Making Diagnostic Impression: Primary Impression: Altered level of consciousness Additional Impressions: Hepatic encephalopathy UTI (urinary tract infection) Qualified Codes: N30.00 - Acute cystitis without hematuria Dilantin toxicity Qualified Codes: T42.0X1A - Poisoning by hydantoin derivatives, accidental ( unintentional), initial encounter ER Course Patient presents with altered LOC which has improved on observation of EMS. 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 Evaluation will be with CT, EKG, chest x-ray and labs including urinalysis. He will be with gentle IV hydration. The patient does have a history of seizures and also of hepatic encephalopathy these are high in the list. Also the last time this happened he had an UTI. EKG reveals sinus bradycardia rate of [address]-T wave changes. Chest x-ray was elevated right hemidiaphragm with colonic dilatation as seen in prior x-rays. Labs are significant for pyuria minimally elevated ammonia. Dilantin level excess. Lactulose, antibiotics given. Patient still sleepy but answers appropriately. Patient admitted tele Dr. Pedersen. Patient signed out to Dr. aHddad as no beds on floor. Laboratory Tests Test 05/14/17 19:15 05/14/17 20:00 White Blood Count 6.9 K/UL (4.8-10.8) Red Blood Count 4.22 M/UL (4.70-6.10) L Hemoglobin 13.5 G/DL (14.2-18.0) L Hematocrit 41.8 % (42.0-52.0) L Mean Corpuscular Volume 99 FL (80-99) Mean Corpuscular Hemoglobin 32.0 PG (27.0-31.0) H Mean Corpuscular Hemoglobin Concent 32.3 G/DL (32.0-36.0) Red Cell Distribution Width 12.7 % (11.6-14.8) Platelet Count 123 K/UL (150-450) L Mean Platelet Volume 6.9 FL (6.5-10.1) Neutrophils (%) (Auto) 62.1 % (45.0-75.0) Lymphocytes (%) (Auto) 24.6 % (20.0-45.0) Monocytes (%) (Auto) 9.8 % (1.0-10.0) Eosinophils (%) (Auto) 2.5 % (0.0-3.0) Basophils (%) (Auto) 1.0 % (0.0-2.0) Prothrombin Time 10.7 SEC (9.30-11.50) Prothrombin Time INR 1.0 (0.9-1.1) PTT 27 SEC (23-33) Sodium Level 144 MMOL/L (136-145) Potassium Level 5.0 MMOL/L (3.5-5.1) Chloride Level 107 MMOL/L (98-107) Carbon Dioxide Level 32 MMOL/L (21-32) Anion Gap 5 mmol/L (5-15) Blood Urea Nitrogen 24 mg/dL (7-18) H Creatinine 0.8 MG/DL (0.55-1.30) Estimate Glomerular Filtration Rate mL/min (>60) Glucose Level 112 MG/DL (74-106) H Lactic Acid Level 1.00 mmol/L (0.66-2.22) Calcium Level 8.7 MG/DL (8.5-10.1) Total Bilirubin 0.3 MG/DL (0.2-1.0) Aspartate Amino Transferase (AST) 14 U/L (15-37) L Alanine Aminotransferase (ALT) 15 U/L (12-78) Alkaline Phosphatase 140 U/L (46-116) H Ammonia 36 umol/L (11.2-31.7) H Total Creatine Kinase 40 U/L (26-308) Troponin I 0.007 ng/mL (0.000-0.056) Pro-B-Type Natriuretic Peptide 352 pg/mL (0-125) H Total Protein 7.0 G/DL (6.4-8.2) Albumin 3.4 G/DL (3.4-5.0) Globulin 3.6 g/dL Albumin/Globulin Ratio 0.9 (1.0-2.7) L Lipase 206 U/L (73-393) Phenytoin (Dilantin) Level 23.5 ug/mL (10-20) H Urine Color Lynsey Urine Appearance Slightly cloudy Urine pH 5 (4.5-8.0) Urine Specific [place] 1.020 (1.005-1.035) Urine Protein 1+ (NEGATIVE) H Urine Glucose (UA) Negative (NEGATIVE) Urine Ketones Negative (NEGATIVE) Urine Occult Blood Negative (NEGATIVE) Urine Nitrite Negative (NEGATIVE) Urine Bilirubin Negative (NEGATIVE) Urine Ictotest Negative Urine Urobilinogen Normal MG/DL (0.0-1.0) Urine Leukocyte Esterase 2+ (NEGATIVE) H Urine RBC 0-2 /HPF (0 - 0) H Urine WBC 15-20 /HPF (0 - 0) H Urine Squamous Epithelial Cells Occasional /LPF Urine Bacteria Moderate /HPF (NONE) H Urine Mucus Few /LPF (NONE/OCC) H Urine Opiates Screen Negative (NEGATIVE) Urine Barbiturates Screen Negative (NEGATIVE) Phencyclidine (PCP) Screen Negative (NEGATIVE) Urine Amphetamines Screen Negative (NEGATIVE) Urine Benzodiazepines Screen Negative (NEGATIVE) Urine Cocaine Screen Negative (NEGATIVE) Urine Marijuana (THC) Screen Negative (NEGATIVE) EKG Diagnostic Results Rate: bradycardiac ST Segments: no acute changes Rhythm Strip Diag. Results EP Interpretation: yes Rhythm: no PVC's, no ectopy, other - Sinus bradycardia Chest X-Ray Diagnostic Results Chest X-Ray Diagnostic Results : Chest X-Ray Ordered: Yes # of Views/Limited/Complete: 1 View Indication: Other Interpretation: no effusion, no pneumothorax, other - Elevated right hemidiaphragm with atelectasis and colonic dilatation Impression: Other Electronically Signed by: Electronically signed by Ciro Thakkar MD CT/MRI/US Diagnostic Results CT/MRI/US Diagnostic Results : Imaging Test Ordered: Head Impression no evidence of acute intracranial abnormality Last Vital Signs Date Time Temp Pulse Resp B/P (MAP) Pulse Ox O2 Delivery O2 Flow Rate FiO2 05/14/17 23:06 97.9 56 20 149/74 98 Room Air Status: improved Disposition: ADMITTED INPATIENT Condition: Serious Referrals: UOMOTO,BINU (PCP) Ciro Thakkar M.D. May 14, 2017 20:38
[2017-05-14 20:51] LABS: BACTERIA,URINE MODERATE /HPF; ICTOTEST NEGATIVE; MUCUS,URINE FEW /LPF (NONE/OCC); RBC,URINE 0-2 /HPF (0 - 0); SQUAMOUS EPITHELIAL CELL,UR OCCASIONAL /LPF (NONE/OCC); WBC,URINE 15-20 /HPF (0 - 0)
[2017-05-14] MEDS ORDERED: Lactulose 20gm/30ml UDC ORAL ONE (21:00)
[2017-05-14 21:05] VITALS: BP 129/70
[2017-05-14] MEDS ORDERED: Acetaminophen 650mg/20.3ml ORAL PRN (21:30)
[2017-05-14 23:06] VITALS: BP 149/74
[2017-05-15] VITALS (7 sets, daily range): BP systolic 132–158; BP diastolic 62–86
[2017-05-15] MEDS ORDERED: Heparin 5000 units/ml inj SUBQ SCH (09:00)
[2017-05-15] MEDS ORDERED: Vitamin D 50,000 units cap ORAL SCH (09:00)
[2017-05-15] MEDS: Brimonidine 0.2% Opth Sol BOTH EYES SCH ×3 (09:00→17:39)
[2017-05-15] MEDS: Aspirin EC 81mg tab ORAL SCH (09:18)
[2017-05-15] MEDS: Lisinopril 20mg tab ORAL SCH (09:19)
[2017-05-15] MEDS: Artificial Tears 1.4% Op Soln BOTH EYES SCH ×3 (09:19→17:39)
[2017-05-15] MEDS: Cefepime HCl 1 GM in D5W 55 ML IVPB SCH ×2 (09:28→21:21)
--- NOTE | 2017-05-15 11:30 | Diagnostic Imaging Report ---
Indication: Altered level of consciousness Technique: spiral acquisitions obtained through the brain. Angled axial and coronal 5 x 5 mm slices were reconstructed. No IV contrast utilized. Radiation dose was minimized using automated exposure control Total dose length product 1386 mGycm. CTDIvol(s) 70 mGy Comparison: none FINDINGS: No acute hemorrhage or edema. No mass effect or midline shift. There is age-related enlargement of the ventricles and extra axial CSF spaces. There is periventricular deep white matter ischemic change. Normal charles-white differentiation. Visualized orbits are unremarkable. Visualized sinuses are unremarkable. Again demonstrated is sclerosis of the mastoids on the right. Intact calvarium. No significant interim change IMPRESSION: Chronic and age-related changes. Negative for acute intracranial bleed or mass effect This agrees with the preliminary interpretation provided overnight by [facility] teleradiology service. The CT scanner at [facility] is accredited by the [employer] and the scans are performed using protocols designed to limit radiation exposure to as low as reasonably achievable to attain images of sufficient resolution adequate for diagnostic evaluation
--- NOTE | 2017-05-15 11:32 | Diagnostic Imaging Report ---
Indication: Chest pain Technique: One view of the chest Comparison: 02/03/2017 Findings: Lungs and pleural spaces are clear. Heart size is normal. The aorta is tortuous and calcified. Again demonstrated is marked elevation of the right hemidiaphragm, under which lies distended hepatic flexure of the colon Impression: No acute process This agrees with the preliminary interpretation provided by the emergency room physician
--- NOTE | 2017-05-15 15:32 | History and Physical Report ---
DATE OF ADMISSION: 05/14/2017 CHIEF COMPLAINT: Altered mental status. HISTORY OF PRESENT ILLNESS: The patient is a 76-year-old male. He has a history of hypertension, diastolic congestive heart failure, sleep apnea, and seizure disorder. He presented from a long term facility with complaints of altered mental status. The patient is a poor historian. According to the staff, the patient was confused and lethargic. By the time paramedics arrived, he was more alert. He was transferred to the emergency room. On evaluation there, he remained somewhat confused. He was diagnosed with UTI. In light of his persistent altered mentation, he is now admitted for further evaluation and care. PAST MEDICAL HISTORY: As above. PAST SURGICAL HISTORY: None. CURRENT MEDICATIONS: Reconciled and reviewed. ALLERGIES: Cod fish and milk. FAMILY HISTORY: Noncontributory. SOCIAL HISTORY: There is no known history of tobacco, ethanol, or drugs. REVIEW OF SYSTEMS: GENERAL: No fever or chills. HEENT: No headaches or visual changes. CARDIOPULMONARY: No chest pain or shortness of breath. GASTROINTESTINAL: No nausea or vomiting. GENITOURINARY: No urgency or frequency. MUSCULOSKELETAL: No joint pain or swelling. NEUROLOGIC: Positive history of seizures. PHYSICAL EXAMINATION: VITAL SIGNS: Temperature 97.9, pulse 62, respirations 12, and blood pressure 144/64. GENERAL: The patient is a well-developed male, in no apparent distress. He is arousable, but somewhat lethargic. NECK: Supple. There is no jugular venous distention. HEART: Regular rate and rhythm. LUNGS: Clear. ABDOMEN: Soft, nontender, and nondistended. EXTREMITIES: Without clubbing, cyanosis, or edema. The patient does move all four extremities. Motor strength is 5/5. LABORATORY DATA: Sodium 144, potassium is 5, and creatinine was 0.8. Alkaline phosphatase is 140. Ammonia level is 36. CK of 0.007. Natriuretic peptide 352. UA showed 15 to 20 WBCs. ASSESSMENT: This is a pleasant male admitted with altered mentation secondary to urinary tract infection and possible sepsis. 1. Sepsis. 2. Urinary tract infection. 3. Toxic metabolic encephalopathy. 4. Seizure disorder. 5. History of diastolic congestive heart failure. 6. History of sleep apnea. PLAN: 1. Continue seizure treatment. 2. IV antibiotics. 3. Followup cultures 4. Monitor neuro status. 5. 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 Torsten Pedersen M.D. DR: MANJEET JOB#: [id number] CC:
[2017-05-15] MEDS: Phenytoin 100mg cap ORAL SCH (17:52)
[2017-05-15] MEDS: Tamsulosin 0.4mg cap ORAL SCH (21:21)
[2017-05-15] MEDS: Heparin 5000 units/ml inj SUBQ SCH (21:21)
--- NOTE | 2017-05-15 21:50 | Consultation ---
History of Present Illness General Chief Complaint: Altered Level of Consciousness Present Illness HPI 76 yo male with history of hypertension, diastolic congestive heart failure, sleep apnea, and seizure disorder. He presented from a group home facility with complaints of altered mental status. During the eval the pt pw waxing and waning of consciousness, he initially was confused however as the eval progressed the pt stated was able to answer the questions. per staff, the pt was irritable and agitated earlier and was uncooperative. the pt is Sudanese speaking, understands Thai. the pt has memory impairment Allergies: Coded Allergies: Codfish (Unverified Allergy, Unknown, 08/09/15) SOYBEAN (Unverified Allergy, Unknown, 08/09/15) Uncoded Allergies: Cow's Milk (Allergy, Intermediate, 08/09/15) COD FISH (Allergy, Unknown, 02/03/17) COW'S MILK (Allergy, Unknown, 02/03/17) IGG4 (Allergy, Unknown, 08/09/15) Medication History Scheduled Aspirin Ec* (Aspirin Ec*), 81 MG ORAL DAILY, (Reported) Brimonidine Tartrate* (Alphagan*), 1 DROP BOTH EYES TID, (Reported) Dextran 70/Hypromellose (Artificial Tears Eye Drops*), 1 DROP BOTH EYES TID, ( Reported) Ergocalciferol (Vitamin D2)* (Vitamin D*), 50,000 UNIT ORAL ONCE A WEEK, ( Reported) Finasteride* (Proscar*), 5 MG ORAL DAILY, (Reported) Levetiracetam (Keppra), 1,500 MG ORAL Q12HR Levetiracetam (Keppra), 1,500 MG ORAL Q12HR Levetiracetam (Keppra), 7.5 ML ORAL BID, (Reported) Lisinopril (Lisinopril*), 20 MG ORAL DAILY, (Reported) Metoprolol Tartrate* (Metoprolol Tartrate*), 20 MG ORAL DAILY, (Reported) Multivitamin (Multi-Day Vitamins), 1 TAB ORAL DAILY, (Reported) Omeprazole (Omeprazole), 20 MG ORAL DAILY, (Reported) Phenytoin Sodium Extended* (Dilantin*), 200 MG ORAL BID Phenytoin Sodium Extended* (Dilantin*), 300 MG ORAL Q12HR Potassium Chloride (Potassium Chloride), 20 MEQ ORAL DAILY, (Reported) Tamsulosin Hcl (Tamsulosin Hcl*), 0.4 MG ORAL BEDTIME, (Reported) Scheduled PRN Acetaminophen (Acetaminophen), 650 MG ORAL Q6H PRN for Mild Pain (Pain Scale 1-3 ), (Reported) Hydralazine Hcl* (Hydralazine Hcl*), 25 MG ORAL PRN PRN for For High Blood Pressure, (Reported) Patient History History Provided By: Patient, Medical Record, PMD Healthcare decision maker Resuscitation status Full Code Advanced Directive on File Past Medical/Surgical History Past Medical/Surgical History: (1) Seizure disorder (2) Encephalopathy acute (3) Epileptic seizure, generalized (4) Breakthrough seizure (5) Hepatic encephalopathy (6) UTI (urinary tract infection) (7) Dilantin toxicity (8) Altered level of consciousness (9) Hearing loss (10) Excessive cerumen in right ear canal Review of Systems Psychiatric: Reports: prior hx, anxiety, emotional problems Physical Exam General Appearance: no apparent distress, alert, agitated Neurologic: alert, oriented x 3, responsive, depressed affect Last 24 Hour Vital Signs Date Time Temp Pulse Resp B/P (MAP) Pulse Ox O2 Delivery O2 Flow Rate FiO2 05/15/17 20:00 97.7 60 20 149/86 95 Room Air 05/15/17 16:00 67 05/15/17 16:00 97.2 62 18 136/62 95 Room Air 05/15/17 12:00 72 05/15/17 12:00 98.2 60 16 132/75 98 Room Air 05/15/17 09:19 146/86 05/15/17 07:11 97.9 60 12 144/64 98 Room Air 05/15/17 06:55 97.9 60 12 144/64 98 Room Air 05/15/17 04:42 97.6 55 20 158/68 98 Room Air 05/15/17 03:00 97.9 56 20 142/64 98 Room Air 05/15/17 00:51 97.9 60 20 143/64 98 Room Air 05/14/17 23:06 97.9 56 20 149/74 98 Room Air Intake and Output 05/15/17 05/16/17 19:00 07:00 # Voids 100 # Bowel Movements 1 Height (Feet): 6 Height (Inches): 0.00 Weight (Pounds): 196 Medications Current Medications Medications (Trade) Dose Ordered Sig/Zulema Route PRN Reason Start Time Stop Time Status Last Admin Dose Admin Acetaminophen (Tylenol) 650 mg Q6H PRN ORAL Mild Pain (Pain Scale 1-3) 05/14/17 21:30 12 21:29 Artificial Tears (Akwa-Tears) 1 drop TID BOTH EYES 05/15/17 09:00 06/14/17 08:59 05/15/17 17:39 Aspirin (Ecotrin) 81 mg DAILY ORAL 05/15/17 09:00 06/14/17 08:59 05/15/17 09:18 Brimonidine Tartrate (Alphagan) 1 drop TID BOTH EYES 05/15/17 09:00 06/14/17 08:59 05/15/17 17:39 Cefepime HCl 1 gm/ Dextrose 55 ml @ 110 mls/hr EVERY 12 HOURS IVPB 05/15/17 09:00 05/22/17 08:59 05/15/17 21:21 Ergocalciferol (Drisdol) 50,000 intlu ONCE A WEEK ORAL 05/15/17 09:00 06/14/17 08:59 05/15/17 09:19 Finasteride (Proscar) 5 mg DAILY ORAL 05/15/17 09:00 06/14/17 08:59 05/15/17 09:19 Heparin Sodium (Porcine) (Heparin 5000 units/ml) 5,000 units EVERY 12 HOURS SUBQ 05/15/17 21:00 06/14/17 20:59 05/15/17 21:21 Levetiracetam (Keppra) 1,500 mg Q12HR ORAL 05/15/17 21:00 06/14/17 20:59 05/15/17 21:22 Lisinopril (Prinivil) 20 mg DAILY ORAL 05/15/17 09:00 06/14/17 08:59 05/15/17 09:19 Multivitamins (Multivitamins) 1 tab DAILY ORAL 05/15/17 09:00 06/14/17 08:59 05/15/17 09:18 Phenytoin (Dilantin) 200 mg BID ORAL 05/15/17 18:00 06/14/17 17:59 Tamsulosin HCl (Flomax) 0.4 mg BEDTIME ORAL 05/15/17 21:00 06/14/17 20:59 05/15/17 21:21 Assessment/Plan Status: stable, progressing Assessment/Plan encephalopathy zyprexa 5mg qhs Loren Acevedo M.D. May 15, 2017 21:49
[2017-05-16] VITALS: BP 149/77
[2017-05-16 04:00] VITALS: BP 160/96
[2017-05-16 08:20] VITALS: BP 164/94
[2017-05-16] MEDS: Phenytoin 100mg cap ORAL SCH (08:56)
[2017-05-16] MEDS: Lisinopril 20mg tab ORAL SCH (08:56)
[2017-05-16] MEDS: Brimonidine 0.2% Opth Sol BOTH EYES SCH ×3 (08:57→17:32)
[2017-05-16] MEDS: Artificial Tears 1.4% Op Soln BOTH EYES SCH ×3 (08:57→17:32)
[2017-05-16] MEDS: Aspirin EC 81mg tab ORAL SCH (08:58)
--- NOTE | 2017-05-16 09:04 | General Progress Note ---
Assessment/Plan Problem List: (1) Dilantin toxicity ICD Codes: T42.0X1A - Poisoning by hydantoin derivatives, accidental ( unintentional), initial encounter SNOMED: 80072609 Qualifiers: Qualified Codes: T42.0X1A - Poisoning by hydantoin derivatives, accidental ( unintentional), initial encounter (2) UTI (urinary tract infection) ICD Codes: N39.0 - Urinary tract infection, site not specified SNOMED: 16188366 Qualifiers: Qualified Codes: N30.00 - Acute cystitis without hematuria (3) Seizure disorder ICD Codes: G40.909 - Epilepsy, unspecified, not intractable, without status epilepticus SNOMED: 888226951 (4) Encephalopathy acute ICD Codes: G93.40 - Encephalopathy, unspecified SNOMED: 2649741 (5) Epileptic seizure, generalized ICD Codes: G40.309 - Generalized idiopathic epilepsy and epileptic syndromes, not intractable, without status epilepticus SNOMED: 68304764 (6) Altered level of consciousness ICD Codes: R40.4 - Transient alteration of awareness SNOMED: 2266127 (7) Breakthrough seizure ICD Codes: G40.919 - Epilepsy, unspecified, intractable, without status epilepticus SNOMED: 787664981 Status: stable Assessment/Plan iv abx follow up cultures resume dilantin monitor levels psych eval cards rx Subjective ROS Limited/Unobtainable: No Constitutional: Reports: malaise, weakness HEENT: Reports: no symptoms Cardiovascular: Reports: no symptoms Respiratory: Reports: no symptoms Gastrointestinal/Abdominal: Reports: no symptoms Genitourinary: Reports: no symptoms Neurologic/Psychiatric: Reports: pre-existing deficit, seizure Endocrine: Reports: no symptoms Hematologic/Lymphatic: Reports: no symptoms Allergies: Coded Allergies: Codfish (Unverified Allergy, Unknown, 08/09/15) SOYBEAN (Unverified Allergy, Unknown, 08/09/15) Uncoded Allergies: Cow's Milk (Allergy, Intermediate, 08/09/15) COD FISH (Allergy, Unknown, 02/03/17) COW'S MILK (Allergy, Unknown, 02/03/17) IGG4 (Allergy, Unknown, 08/09/15) All Systems: reviewed and negative except above Subjective ate breakfast. sleepy now. sz meds held yesterday due to high dilantin. better today. family requested psych eval. Objective Last 24 Hour Vital Signs Date Time Temp Pulse Resp B/P (MAP) Pulse Ox O2 Delivery O2 Flow Rate FiO2 05/16/17 08:56 149/77 05/16/17 04:00 60 05/16/17 00:00 60 05/16/17 00:00 97.0 66 20 149/77 96 Room Air 05/15/17 20:00 97.7 60 20 149/86 95 Room Air 05/15/17 20:00 63 05/15/17 16:00 67 05/15/17 16:00 97.2 62 18 136/62 95 Room Air 05/15/17 12:00 72 05/15/17 12:00 98.2 60 16 132/75 98 Room Air 05/15/17 09:19 146/86 Laboratory Tests 05/16/17 07:05: Phenytoin (Dilantin) Level 16.8 Height (Feet): 6 Height (Inches): 0.00 Weight (Pounds): 196 General Appearance: WD/WN, lethargic, confused Neck: supple Cardiovascular: normal peripheral pulses, normal rate, regular rhythm Respiratory/Chest: chest wall non-tender, lungs clear, normal breath sounds, no respiratory distress Abdomen: normal bowel sounds, non tender, soft, no organomegaly Edema: no edema noted Arm (L), no edema noted Arm (R), no edema noted Leg (L), no edema noted Leg (R), no edema noted Pedal (L), no edema noted Pedal (R), no edema noted 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
[2017-05-16] MEDS: Heparin 5000 units/ml inj SUBQ SCH ×2 (09:08→20:47)
[2017-05-16] MEDS: Cefepime HCl 1 GM in D5W 55 ML IVPB SCH ×2 (09:15→20:45)
[2017-05-16] MEDS: Phenytoin Susp 100mg/4ml ORAL SCH ×2 (10:24→20:46)
[2017-05-16 12:05] VITALS: BP 158/82
[2017-05-16 16:05] VITALS: BP 116/75
[2017-05-16] MEDS ORDERED: Phenytoin 100mg cap ORAL SCH (18:00)
[2017-05-16 20:00] VITALS: BP 141/79
--- NOTE | 2017-05-16 20:17 | General Progress Note ---
Assessment/Plan Status: stable, progressing Assessment/Plan encephalopathy -cont current meds Subjective Neurologic/Psychiatric: Reports: anxiety, emotional problems Allergies: Coded Allergies: Codfish (Unverified Allergy, Unknown, 08/09/15) SOYBEAN (Unverified Allergy, Unknown, 08/09/15) Uncoded Allergies: Cow's Milk (Allergy, Intermediate, 08/09/15) COD FISH (Allergy, Unknown, 02/03/17) COW'S MILK (Allergy, Unknown, 02/03/17) IGG4 (Allergy, Unknown, 08/09/15) Subjective calmer and more cooperative less irritable cob to had waxing and waning of consciousness Objective Last 24 Hour Vital Signs Date Time Temp Pulse Resp B/P (MAP) Pulse Ox O2 Delivery O2 Flow Rate FiO2 05/16/17 16:05 97.2 65 20 116/75 95 Room Air 05/16/17 16:00 65 05/16/17 12:05 97.0 63 20 158/82 96 Room Air 05/16/17 12:00 62 05/16/17 08:56 149/77 05/16/17 08:20 97.3 71 20 164/94 96 Room Air 05/16/17 04:00 60 05/16/17 00:00 60 05/16/17 00:00 97.0 66 20 149/77 96 Room Air Intake and Output 05/16/17 05/17/17 19:00 07:00 Intake Total 360 ml Balance 360 ml Intake Oral 360 ml # Voids 3 # Bowel Movements 1 Laboratory Tests 05/16/17 07:05: Phenytoin (Dilantin) Level 16.8 Height (Feet): 6 Height (Inches): 0.00 Weight (Pounds): 196 General Appearance: no apparent distress, alert Neurologic: alert, oriented x 3, responsive, depressed affect Loren Acevedo M.D. May 16, 2017 20:17
[2017-05-16] MEDS: Tamsulosin 0.4mg cap ORAL SCH (20:46)
[2017-05-17] VITALS: BP 146/94
[2017-05-17 04:00] VITALS: BP 153/95
[2017-05-17 08:24] VITALS: BP 149/91
--- NOTE | 2017-05-17 08:41 | Cardiology Report ---
APPROVED REPORT EKG Measurement Heart [id number] [id number] [id number] Sinus bradycardia Nonspecific intraventricular block ST elevation, consider early repolarization, pericarditis, or injury T wave abnormality, consider inferior ischemia Abnormal ECG
[2017-05-17] MEDS: Heparin 5000 units/ml inj SUBQ SCH (09:00)
[2017-05-17] MEDS: Phenytoin Susp 100mg/4ml ORAL SCH (09:38)
[2017-05-17] MEDS: Cefepime HCl 1 GM in D5W 55 ML IVPB SCH (09:38)
[2017-05-17] MEDS: Brimonidine 0.2% Opth Sol BOTH EYES SCH ×2 (09:39→13:29)
[2017-05-17] MEDS: Artificial Tears 1.4% Op Soln BOTH EYES SCH ×2 (09:39→13:29)
[2017-05-17] MEDS: Aspirin EC 81mg tab ORAL SCH (09:39)
[2017-05-17] MEDS: Lisinopril 20mg tab ORAL SCH (09:40)
[2017-05-17 09:46] LABS: BASOPHILS % (AUTO) 1.1 % (0.0-2.0); EOSINOPHILS % (AUTO) 4.5 % (0.0-3.0); LYMPHOCYTES % (AUTO) 30.1 % (20.0-45.0); MEAN CORPUSCULAR HEMOGLOBIN 32.6 PG (27.0-31.0); MEAN CORPUSCULAR HGB CONC 33.3 G/DL (32.0-36.0); MEAN CORPUSCULAR VOLUME 98 FL (80-99); MEAN PLATELET VOLUME 7.6 FL (6.5-10.1); MONOCYTES % (AUTO) 8.7 % (1.0-10.0); NEUTROPHILS % (AUTO) 55.6 % (45.0-75.0); PLATELET COUNT 106 K/UL (150-450); RED CELL DISTRIBUTION WIDTH 12.7 % (11.6-14.8); WHITE BLOOD COUNT 4.4 K/UL (4.8-10.8)
[2017-05-17 10:01] LABS: ANION GAP 1 mmol/L (5-15); CALCIUM 8.5 MG/DL (8.5-10.1); CARBON DIOXIDE 34 MMOL/L (21-32); CHLORIDE 108 MMOL/L (98-107); CREATININE 0.9 MG/DL (0.55-1.30); POTASSIUM 3.7 MMOL/L (3.5-5.1); SODIUM 143 MMOL/L (136-145)
[2017-05-17 11:41] VITALS: BP 132/80
[2017-05-17] MEDS ORDERED: NS 275ml ONE (14:09)
[2017-05-17] MEDS ORDERED: Tubing IV Secondary IV ONE (14:09)
--- NOTE | 2017-05-17 23:48 | General Progress Note ---
Assessment/Plan Status: stable Assessment/Plan encephalopathy -cont current meds Subjective Neurologic/Psychiatric: Reports: anxiety, depressed, emotional problems Allergies: Coded Allergies: Codfish (Unverified Allergy, Unknown, 08/09/15) SOYBEAN (Unverified Allergy, Unknown, 08/09/15) Uncoded Allergies: Cow's Milk (Allergy, Intermediate, 08/09/15) COD FISH (Allergy, Unknown, 02/03/17) COW'S MILK (Allergy, Unknown, 02/03/17) IGG4 (Allergy, Unknown, 08/09/15) Subjective calmer and more cooperative less irritable cob to had waxing and waning of consciousness Objective Last 24 Hour Vital Signs Date Time Temp Pulse Resp B/P (MAP) Pulse Ox O2 Delivery O2 Flow Rate FiO2 05/17/17 12:00 97 05/17/17 11:41 98.1 77 20 132/80 95 Room Air 05/17/17 09:40 149/91 05/17/17 08:24 97.9 93 20 149/91 94 Room Air 05/17/17 08:00 87 05/17/17 04:00 97.7 74 20 153/95 95 Room Air 05/17/17 04:00 68 05/17/17 00:00 96.6 68 20 146/94 95 Room Air 05/17/17 00:00 66 Intake and Output 05/17/17 05/18/17 19:00 07:00 Intake Total 495 ml Balance 495 ml Intake Oral 440 ml IV Total 55 ml # Voids 1 Laboratory Tests 05/17/17 09:05: White Blood Count 4.4L, Red Blood Count 4.10L, Hemoglobin 13.3L, Hematocrit 40.0L, Mean Corpuscular Volume 98, Mean Corpuscular Hemoglobin 32.6H, Mean Corpuscular Hemoglobin Concent 33.3, Red Cell Distribution Width 12.7, Platelet Count 106L, Mean Platelet Volume 7.6, Neutrophils (%) (Auto) 55.6, Lymphocytes ( %) (Auto) 30.1, Monocytes (%) (Auto) 8.7, Eosinophils (%) (Auto) 4.5H, Basophils (%) (Auto) 1.1, Sodium Level 143, Potassium Level 3.7, Chloride Level 108H, Carbon Dioxide Level 34H, Anion Gap 1L, Blood Urea Nitrogen 13, Creatinine 0.9, Estimat Glomerular Filtration Rate , Glucose Level 144H, Calcium Level 8.5, Phenytoin (Dilantin) Level 15.6 Height (Feet): 6 Height (Inches): 0.00 Weight (Pounds): 196 General Appearance: no apparent distress, lethargic, confused Neurologic: disoriented, unresponsive, depressed affect Loren Acevedo M.D. May 17, 2017 23:47
--- NOTE | 2017-05-18 02:46 | Discharge Summary ---
DATE OF ADMISSION: 05/14/2017 DATE OF DISCHARGE: 05/17/2017 ADMISSION DIAGNOSES: 1. Toxic metabolic encephalopathy. 2. Dilantin toxicity. 3. History of seizure disorder. DISCHARGE DIAGNOSES: 1. Toxic metabolic encephalopathy. 2. Dilantin toxicity. 3. History of seizure disorder. HISTORY AND HOSPITAL COURSE: The patient is a pleasant male, who was admitted with altered mental status. He was noted to be Dilantin toxic. He also was diagnosed with urinary tract infection. He was hydrated. Dilantin was held and we started once the level was normal. On discharge, he was doing well. He will be discharged back to the long-term facility. Follow up will be in one to two days. DISCHARGE MEDICATIONS: Please see discharge medication list for discharge medications. DIET: Regular diet. ACTIVITY: Ad-omid. Torsten Pedersen M.D. DR: Giuseppe JOB#: [id number] CC:
--- NOTE | 2017-05-18 22:45 | Consultation ---
DATE OF CONSULTATION: 05/14/2017 CARDIOLOGY CONSULTATION CONSULTING PHYSICIAN: Ciro Ames M.D. REASON FOR CONSULTATION: Bradyarrhythmia and abnormal EKG. HISTORY OF PRESENT ILLNESS: This is a 76-year-old male, residing at a prison facility, was noted to have altered mentation there, he was unresponsive for a while and ultimately responded to a sternal rub. His blood sugar was normal in the field as were his vital sign. He was brought to the emergency room for evaluation. Concern was raised over his abnormal EKG in conjunction with the presenting symptoms and I have been asked to assist with further care. PAST MEDICAL HISTORY: Seizure disorder, recurrent urinary tract infections, prostatic hypertrophy, macular degeneration, degenerative disk disease, status post cervical laminectomy, hypertensive heart disease with history of labile blood pressure, sinus node disease with asymptomatic bradycardia, sleep apnea, COPD, glaucoma. ALLERGIES: Include milk. SOCIAL HISTORY: Prior smoker. Moderate alcohol in the past. No substance abuse. FAMILY HISTORY: Not remarkable. REVIEW OF SYSTEMS: Not obtainable from the patient. Prior records reviewed. Pertinent data outlined above. Prior echocardiogram noted and revealed normal ejection fraction with concentric hypertrophy and minimal degenerative valve disease. PHYSICAL EXAMINATION: VITAL SIGNS: Blood pressure 147/88, heart rate 58, respiratory rate 16, afebrile, and oxygen saturation 98% on room air. GENERAL: Awake and alert, in no distress. Responses are appropriate, but slow. There is some kyphosis of the neck. HEENT: Conjunctivae are pink. Sclerae are anicteric. Oropharynx clear. NECK: Supple. LUNGS: With good breath sounds. CARDIAC: Regular rhythm and rate. Normal S1, S2 with a fourth heart sound. ABDOMEN: Soft and nontender. EXTREMITIES: With trace dependent edema and some stasis derm changes. NEUROLOGIC: Reveals symmetric strength. No asterixis. LABORATORY AND DIAGNOSTIC DATA: EKG sinus bradycardia, nonspecific ST-T wave changes, incomplete right bundle-branch block. Chest x-ray revealed elevated right hemidiaphragm, which is unchanged from prior studies. Labs reviewed. IMPRESSION: Altered mental status versus syncope, transient unresponsiveness may have been due to sleep apnea. There is no evidence for hemodynamically significant arrhythmias. An acute cerebrovascular insult is unlikely. There is no evidence of any antecedent seizures. PLAN: Check drug levels. Cardiac monitoring. Hydration. Titrate antihypertensives. Monitor for apnea. DVT and stress ulcer prophylaxis. Avoid all sedation. Ciro Ames M.D. DR: Kiya JOB#: [id number] CC:
--- NOTE | 2017-05-18 23:00 | Progress Note ---
DATE: 05/16/2017 CARDIOLOGY PROGRESS NOTE SUBJECTIVE: Dilantin level has returned and was elevated, now has normalized. The patient is awake, alert, and at baseline mentation. No seizure activity noted. Monitored rhythm sinus and sinus bradycardia with no pauses. OBJECTIVE: VITAL SIGNS: Blood pressure 149/77, pulse 60, respirations 20, and afebrile. HEENT: Arcus senilis. Kyphosis in the cervical region. NECK: Supple. LUNGS: Clear. CARDIAC: Regular. Normal S1, S2 with a fourth heart sound. ABDOMEN: Soft. EXTREMITIES: No pitting edema. IMPRESSION: 1. Dilantin toxicity. 2. Toxic and metabolic encephalopathies. 3. Urinary tract infection with sepsis. 4. Sinus node disease with asymptomatic bradycardia. 5. Chronic right bundle-branch block. 6. Chronic obstructive pulmonary disease with no active bronchospasm. 7. Hypertensive heart disease with history of malignant range blood pressure. 8. Chronic diastolic congestive heart failure. PLAN: 1. Adjust Dilantin dose. 2. Continue to ensure adequate oral intake and hydration. 3. Antimicrobials. 4. Maintain current cardiovascular regimen. 5. We would not pursue tight blood pressure control as the patient has significant orthostatic potential. Ciro Ames M.D. DR: VICKY JOB#: [id number] CC:
--- NOTE | 2017-05-18 23:15 | Progress Note ---
DATE: 05/15/2017 CARDIOLOGY PROGRESS NOTE Late entry for 05/15/2017. SUBJECTIVE: The patient is more alert. No loss of consciousness. No unresponsiveness noted. OBJECTIVE: VITAL SIGNS: Blood pressure 136/62, pulse 67, respirations 18, and afebrile. Monitored rhythm, sinus. Sinus bradycardia. No pauses. NECK: Kyphosis. LUNGS: Diminished breath sounds. HEART: Regular rhythm and rate. Normal S1, S2. SKIN: Stasis derm changes. No dependent edema. LABORATORY DATA: Labs from admission were notable for a normal troponin and lactic acid level. Pro-natriuretic peptide was 352. IMPRESSION: 1. Toxic and metabolic encephalopathies. 2. Transient alteration in mental status, secondary to above. 3. Urinary tract infection with sepsis. 4. Chronic diastolic congestive heart failure. 5. History of sleep apnea. 6. Sinus node disease with asymptomatic bradycardia. 7. Chronic right bundle-branch block. 8. History of chronic obstructive pulmonary disease with no active bronchospasm. 9. Seizure disorder. PLAN: 1. Followup drug levels. 2. Continue to maintain adequate hydration. 3. Empiric antibiotics. 4. Titrate antihypertensives. 5. Avoid any drugs with negative chronotropic potential. Ciro Ames M.D. DR: VICKY JOB#: [id number] CC:
--- NOTE | 2017-05-18 23:45 | Progress Note ---
DATE: 05/17/2017 CARDIOLOGY PROGRESS NOTE SUBJECTIVE: The patient is awake, alert, and at his baseline mentation. His Dilantin level has normalized and he has resumed the dosing. His monitored rhythm remains sinus with episodes of asymptomatic sinus bradycardia. No pauses. OBJECTIVE: VITAL SIGNS: Afebrile, blood pressure 141/79, heart rate 68, respiratory rate 20, and room air oxygen saturation 94% to 96%. LUNGS: Clear. CARDIAC: Regular rhythm and rate. Normal S1, S2 with a fourth heart sound. Mild gynecomastia. ABDOMEN: Soft. No guarding. EXTREMITIES: Stasis derm changes. No pitting edema. There is slight resting tremor. IMPRESSION: 1. Hypertensive heart disease now with adequate blood pressure control and history of malignant range hypertension as well as increased orthostatic potential. 2. Dilantin toxicity resolved. 3. Toxic encephalopathy. 4. Sinus node disease, asymptomatic with bradycardia. 5. Chronic right bundle-branch block, of no clinical significance. 6. Chronic obstructive pulmonary disease with no active bronchospasm. PLAN: Current medications are reconciled. Transfer to the correction facility. Case is reviewed with Dr. Pedersen including further discharge plans. Stable from cardiovascular standpoint. Ciro Ames M.D. DR: Kiya JOB#: [id number] CC:
== END 2017-05-17 14:10 | DRG 92 ==
LOC: EDBD 18:54 → EMR 19:20 → 2E 20:20 → EDBEDREQ 05-15 02:57
DX: G92 Toxic encephalopathy (principal); I50.32 Chronic diastolic (congestive) heart failure; I11.0 Hypertensive heart disease with heart failure; N39.0 Urinary tract infection, site not specified; K72.90 Hepatic failure, unspecified without coma; T42.0X5A Adverse effect of hydantoin derivatives, initial encounter; I10 Essential (primary) hypertension; G47.30 Sleep apnea, unspecified; G40.909 Epilepsy, unspecified, not intractable, without status epilepticus; T46.0X5A Adverse effect of cardiac-stimulant glycosides and drugs of similar action, initial encounter; Y92.89 Other specified places as the place of occurrence of the external cause
CPT/HCPCS: 36415; 70450; 71010; 80048; 80053; 80185; 80299; 80307; 81003; 82140; 82550; 82962; 83605; 83690; 83880; 84484; 85025; 85610; 85730; 87040; 87086; 87181; 93005; 99285